=== PATIENT | female | born 1940 | race Caucasian/White ===

== ENCOUNTER 2018-12-09 08:50 | Emergency (ER) | payer MEDICARE, OTHER ==
[2018-12-09] MEDS ORDERED: Sodium Chloride 0.9% 1000 ML 1,000 ML ONE (09:35)
[2018-12-09 09:41] LABS: BASOPHIL % 0.2 % (0.0-0.4); Basophil (Absolute #) 0.02 (0-0.4); Eosinophil % 1.7 % (0.00-5.0); Eosinophil (Absolute #) 0.16 (0-0.5); Granulocyte Absolute (ANC) 7.27 (1.4-6.9); Granulocytes % 76.3 % (36.0-66.0); Hematocrit 30.5 % (35-47); Hemoglobin 9.3 gm/dl (12.0-16.0); Lymphocyte (Absolute #) 1.55 (1.0-4.6); Lymphocytes % 16.3 % (24.0-44.0); Mean Cell Volume 100.7 fl (78-100); Mean Corpuscular Hgb Concent. 30.5 g/dl (32-36); Mean Platelet Volume 11.2 fl (6-9.5); Monocyte (Absolute #) 0.52 (0.0-1.3); Monocytes % 5.5 % (0.0-12.0); Platelet Count 191 K/mm3 (150-450); Red Blood Count 3.03 M/mm3 (4.1-5.4); Red Cell Distribution Width 14.5 % (11.5-14.0); White Blood Count 9.5 K/mm3 (4.0-10.5)
[2018-12-09 09:44] LABS: Mean Corpuscular Hemoglobin 30.6 pg (26-32)
[2018-12-09] MEDS: Sodium Chloride 0.9% 1000 ML 1,000 ML IV STA (09:54)
[2018-12-09 09:55] LABS: ALBUMIN 3.1 g/dL (3.5-5.0); ALKALINE PHOSPHATASE 148 U/L (38-126); ANION GAP 16.5 MEQ/L (5-15); BLOOD UREA NITROGEN 23 mg/dL (7-17); CHLORIDE 106 mmol/L (98-107); Calcium 9.2 mg/dL (8.4-10.2); Carbon Dioxide 23 mmol/L (22-30); Creatinine 1 0.96 mg/dL (0.52-1.04); Glucose 193 mg/dL (74-106); SGOT/AST 33 U/L (14-36); SGPT/ALT 14 U/L (0-35); SODIUM 141 mmol/L (137-145); Total Protein 6.3 g/dL (6.3-8.2)
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
[2018-12-09 12:59] LABS: Appearance CLOUDY (CLEAR); Bilirubin NEGATIVE (NEGATIVE); Blood NEGATIVE Ery/ul (0-5); Epithelial Cells RARE /HPF (FEW); Glucose NEGATIVE (NEGATIVE); Ketones NEGATIVE (NEGATIVE); Leukocyte Esterase LARGE (NEGATIVE); Mucus SLIGHT /HPF (NEGATIVE); Nitrite NEGATIVE (NEGATIVE); Non-Squamous Epithelial Cells FEW /HPF (FEW); Protein,Urine Dip 100 (Negative); Specific Gravity 1.016 (1.005-1.025); Urobilinogen NEGATIVE mg/dL (0-1); WBC 51-100 /HPF (0-5)
[2018-12-09] MEDS ORDERED: ROCEPHIN 1 Gm-D5w 50 ml Bag** 1 G/50 ML IVPB IV ONE (13:13)
[2018-12-09] MEDS: ROCEPHIN 1 Gm-D5w 50 ml Bag** 1 G/50 ML IVPB IV STA (13:45)
[2018-12-09 14:36] VITALS: BP 150/70; PULSE 94; O2SAT 95
== END 2018-12-09 14:45 ==
LOC: ED 08:50
DX: R42 Dizziness and giddiness (principal); N39.0 Urinary tract infection, site not specified
CPT/HCPCS: 36000; 36415; 70450; 71250; 80053; 81001; 84484; 85025; 87077; 87086; 87186; 93005; 93041; 96360; 96365; 99284; J0696

== ENCOUNTER 2019-12-31 05:40 | Emergency (ER) | payer MEDICARE, OTHER ==
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
[2019-12-31 07:05] LABS: BASOPHIL % 0.2 % (0.0-0.4); Basophil (Absolute #) 0.03 (0-0.4); Eosinophil % 3.6 % (0.00-5.0); Eosinophil (Absolute #) 0.53 (0-0.5); Hematocrit 35.9 % (35-47); Hemoglobin 12.2 gm/dl (12.0-16.0); Lymphocyte (Absolute #) 3.92 (1.0-4.6); Lymphocytes % 26.8 % (24.0-44.0); Mean Cell Volume 101.1 fl (78-100); Mean Corpuscular Hemoglobin 34.4 pg (26-32); Monocyte (Absolute #) 0.92 (0.0-1.3); Monocytes % 6.3 % (0.0-12.0); Neutrophil % 63.1 % (36.0-66.0); Platelet Count 230 K/mm3 (150-450); Red Blood Count 3.55 M/mm3 (4.1-5.4); Red Cell Distribution Width 13.1 % (11.5-14.0); White Blood Count 14.6 K/mm3 (4.0-10.5)
[2019-12-31 07:09] LABS: INR 0.96 (0.8-3.0); PROTIME 10.8 SECONDS (9.95-12.35)
[2019-12-31 07:23] LABS: ALBUMIN 4.4 g/dL (3.5-5.0); ANION GAP 16.2 MEQ/L (5-15); BILIRUBIN,TOTAL 0.5 mg/dL (0.2-1.3); Calcium 10.6 mg/dL (8.4-10.2); Creatinine 1 1.28 mg/dL (0.52-1.04); Potassium 3.8 mmol/L (3.5-5.1); Total Protein 7.6 g/dL (6.3-8.2)
[2019-12-31 07:36] LABS: Appearance CLEAR (CLEAR); Bilirubin NEGATIVE (NEGATIVE); Blood NEGATIVE Ery/ul (0-5); Glucose NEGATIVE (NEGATIVE); Ketones NEGATIVE (NEGATIVE); Leukocyte Esterase NEGATIVE (NEGATIVE); Mucus SLIGHT /HPF (NEGATIVE); Nitrite NEGATIVE (NEGATIVE); Protein,Urine Dip 100 (Negative); RBC 0-2 /HPF (0-2); Specific Gravity 1.012 (1.005-1.025); Urobilinogen NEGATIVE mg/dL (0-1)
[2019-12-31 07:44] VITALS: BP 178/72; PULSE 55; O2SAT 100
--- NOTE | 2019-12-31 08:43 | XRAY ---
Exam: CT of the head without IV contrast from 12/31/2019. Total DLP: 1020.26 mGy-cm. Comparison: CT of the head without IV contrast from 12/09/2018. Indication: 79-year-old female with injury/trauma, fall, consciousness not specified, injury date 12/31/2019. Technique: Non-IV contrast axial images were obtained through the brain. Reconstructed coronal and sagittal images were created and reviewed. Findings: The study is remarkable for a prominent acute subdural hematoma measuring a maximum of 1.5 cm in width on axial image #34. The mid and lower left cerebral cortical sulci are effaced. The left lateral ventricle is compressed, and there is significant [id number]-[id number] shift of approximately 12 mm on axial image #33. I see no evidence of descending herniation at this time. Structures of the posterior fossa appear unremarkable. In addition to the large left-sided acute subdural hematoma, there are some scattered foci of acute subarachnoid hemorrhage within the upper cerebral convexities bilaterally. The remainder of the right cerebral hemisphere appears unremarkable. I see no evidence of acute fracture of the calvarium of the skull. Some small polyps or mucosal thickening are seen along the floor of the left maxillary sinus. No paranasal sinus air-fluid levels are seen. The mastoid air cells are well aerated without effusion. There is superficial anterior left periorbital and posterior left parietal soft tissue scalp injury/contusion. Impression: 1. There is at least a moderate sized acute subdural hematoma on the left measuring up to 15 mm in thickness, with associated mass effect and significant midline shift from left to right, as discussed above. Some additional foci of acute subarachnoid hemorrhages are seen within the upper cerebral convexities bilaterally. Note: These findings were discussed with Dr. Matos at 7:29 AM on 12/31/[address] [facility] radiologist, Kenya Cabrera M.D.
--- NOTE | 2019-12-31 09:07 | XRAY ---
Exam: CT of the cervical spine without IV contrast from 12/31/2019. CTDI: 42.73 mGy Comparison: None. Indication: 79-year-old female with injury/trauma, fall, injury date on 12/31/2019. Technique: Non-IV contrast axial CT images were obtained through the cervical spine. Reconstructed coronal and sagittal images were created and reviewed. Findings: I see no acute fracture, AP subluxation, or prevertebral soft tissue swelling. Cervical vertebral body heights are normal and in good alignment. Cervical interspace heights are fairly well-maintained. At C4-C5, there is a mild diffuse posterior disc/osteophyte complex which mildly indents the anterior aspect of the spinal sac resulting in a mild canal stenosis on the sagittal images. Similarly, there is a smaller posterior disc/osteophyte complex at C3-C4 which results in a mild canal stenosis as well. These findings are chronic. Incidentally, there is an oval-shaped 6.6 mm x 5 mm dense calcification at the posterior margin of the spinal canal at the C3-C4 level to the left of midline. I am unsure what this represents. Significance is doubtful. I also note some degenerative change at the preodontoid space and the posterior aspect of C2-C3 and C5-C6. Small anterior vertebral endplate spurs are seen noted as well. The neural foramen appear mildly narrowed at C3-C4 on the left, mildly narrowed bilaterally at C4-C5, and moderately narrowed on the left at C5-C6. Small dystrophic calcification is seen posterolaterally on the right at the C2-C3 level. This is within the posterior soft tissues. This appears long-standing. The lung apices are clear. There is a partially imaged left brachiocephalic stent. Impression: 1. No acute cervical spine fracture or AP traumatic subluxation is seen. 2. Mild diffuse degenerative changes are seen throughout the cervical spine. Other incidental findings, as discussed above.
--- NOTE | 2019-12-31 09:45 | XRAY ---
Exam: CT of the thoracic spine without IV contrast which were reconstructed from the CT of the chest without IV contrast performed on the same date. Comparison: Two-view chest from 02/09/2019. Indication: 79-year-old female with injury/trauma; patient fell injuring left side. Findings: Reconstructed axial CT images were obtained through the thoracic spine. In addition, reconstructed coronal and sagittal images were generated and reviewed. Findings: There is a mild lower mid dorsal kyphosis representing no change. I see no acute thoracic spine fracture or AP subluxation. The thoracic spinal canal does not appear compromised (i.e. no stenosis). Prominent anterior lateral osteophytes are seen within the mid and lower thoracic spine representing no change. The neural foramen appear unremarkable. A 4 cm in length vascular stent is seen within the proximal left subclavian artery. Emphysematous changes are again seen within the lungs. A calcified atherosclerotic thoracic aorta is seen. The ascending aorta measures a maximum of 3.6 cm in AP dimension on sagittal image #20 and 3.6 cm in width on coronal image #13. The thyroid gland appears grossly unremarkable. Some coronary artery vascular calcification is seen bilaterally. I again see a mildly comminuted fracture deformity of the manubrium of the sternum. Age is unclear. Correlate clinically. Impression: 1. No acute thoracic spine fracture is seen.
--- NOTE | 2019-12-31 09:55 | XRAY ---
Exam: CT of the facial bones without IV contrast from 12/31/2019. CTDI: 30.20 mGy Comparison: None. Indication: 79-year-old female with injury/trauma, patient fell, left orbital/periorbital injury on 12/31/2019. Technique: Non-IV contrast axial images were obtained through the facial bones. Reconstructed coronal and sagittal images were created and reviewed. Findings: I see no evidence of facial bone fracture or traumatic air-fluid levels within the paranasal sinuses. No acute intraorbital abnormality is seen. The globes of each eye appear unremarkable. There is moderate soft tissue swelling noted. There is moderate anterior left periorbital soft tissue swelling. There is also moderate soft tissue swelling/contusion overlying the anterior left cheek. I again see some mucosal thickening and mild polypoid nodularity at the floor of the left maxillary sinus. The remainder of the paranasal sinuses appears clear. The zygomatic arches appear intact. The parotid glands appear unremarkable. There is incidental note of a calcified osteoma within the posterior right ethmoid sinus. I again see a large left-sided acute subdural hematoma which is seen to better advantage on the CT of the brain obtained on the same day. Impression: 1. Moderate left periorbital and left facial soft tissue injury/contusion. No underlying acute intraorbital abnormality is seen. 2. No acute facial bone fracture or traumatic air-fluid levels within the paranasal sinuses is seen.
--- NOTE | 2019-12-31 10:24 | XRAY ---
Exam: CT of the chest without IV contrast from 12/31/2019. CTDI: 4.83 mGy Comparison: Two-view chest films series from 02/09/[address] of the chest without IV contrast from 12/09/2018. Indication: 79-year-old female with injury/trauma striking left side, fall, injury date of 12/31/2019. Technique: Non-IV contrast axial images were obtained through the chest. Reconstructed coronal and sagittal images were created and reviewed. Findings: The heart size appears within normal limits without evidence of pericardial effusion. Coronary artery vascular calcification is seen bilaterally. There is also moderate atherosclerotic vascular calcification of the thoracic aorta. The ascending aorta is mildly prominent measuring up to 3.6 cm in diameter. This does not appear changed from 12/09/2018. Some central bronchial wall calcification is again seen. There is no evidence of mediastinal hematoma or abnormal lymphadenopathy. I again see a vascular stent within the proximal left subclavian artery. Mild centrilobular emphysematous changes are seen within the upper lobes. There is a stable bilobed lung nodule measuring 9 mm in greatest diameter within the posterior lateral right lower lobe on axial image #36 representing no change from 12/09/2018. No other soft tissue lung nodularity is seen. No air space infiltrates, pneumothorax, or pleural fluid is seen. Prior moderate left pleural effusion on 12/09/2018 has resolved. Minimal compression atelectatic changes are seen within both posterior lung sulci. There is a complex 4.4 cm in diameter predominantly cystic soft tissue structure abutting the anterior lateral aspect of the upper pole of the left kidney. This measures approximately +6.0 Hounsfield units. This might represent a cyst, but this is not definitive. There has been further healing of the mildly comminuted fracture of the manubrium of the sternum as compared to 12/09/2018 (i.e. old). I see no other evidence of acute fracture within the chest. The left rib cage appears unremarkable. Soft tissue bruising/contusion is seen overlying the medial aspect of the left breast. Impression: 1. I see no evidence of acute traumatic abnormality within the chest. There does appear to be soft tissue injury/bruising within the medial aspect of the left breast. No underlying left rib fracture, pneumothorax, or pleural effusion is seen. 2. A complex appearing cystic structure is seen abutting the upper pole of the the left kidney. Etiology is not certain. Consider further evaluation with renal ultrasound or dedicated CT scan. 3. Other incidental findings, as discussed above.
--- NOTE | 2019-12-31 10:33 | XRAY ---
Exam: CT of the pelvis without IV contrast from 12/31/2019. CTDI: 12.44 mGy Comparison: None. Indication: 79-year-old female with injury/trauma, fall, injury to left side of pelvis, injury date on 12/31/2019. Technique: Non-IV contrast axial images were obtained through the pelvis with a bone algorithm technique. Reconstructed coronal and sagittal images were created and reviewed. Findings: There is an essentially nondisplaced linear fracture within the left iliac bone. Only minimally asymmetric soft tissue swelling/hematoma is seen anterior to this. There is no free intraperitoneal fluid within the pelvis. No additional acute fractures of the pelvis are seen. An aorto biiliac stent is seen. There is also a femoral-femoral bypass graft traversing the lower pelvis anteriorly. Moderate osteoarthritic changes are seen within both hip joints. There is also degenerative change at the level of the symphysis pubis. The sacroiliac joints appear intact and reveal some vacuum phenomena. Extensive subcutaneous soft tissue contusion and hematoma are seen within the lower left flank and lateral left buttock region. Fecal impaction within the rectum is seen with the rectum measuring about 7 cm in diameter. Mild sigmoid colon diverticulosis is seen. A mildly atrophied anteflexed uterus is seen containing a punctate calcification within it. No free intraperitoneal air is seen. Impression: 1. Essentially nondisplaced linear left iliac bone fracture. 2. Lateral left gluteal and lower left flank soft tissue hematoma. 3. Other incidental findings, as discussed above.
--- NOTE | 2019-12-31 11:00 | XRAY ---
Exam: CT of the lumbar spine without IV contrast from 12/31/2019. CTDI: 24.85 mGy Comparison: None. Indication: 79-year-old female with injury/trauma, fall, blunt trauma to left side, injury date 12/31/2019. Technique: Non-IV contrast axial images were obtained through the lumbar spine. Reconstructed coronal and sagittal images were created and reviewed. Findings: There are 5 [id number] lumbar-type vertebra. I see no acute lumbar spine fracture, spondylolisthesis, or spondylolysis. The vertebral body heights are well-maintained. Alignment is unremarkable. Moderate anterior lateral vertebral endplate spurring is seen throughout the lumbar spine. The lumbar interspace heights are well-maintained. Mild facet joint arthropathy is seen at L4-L5 and L5-S1, right greater than left. The neural foramen appear unremarkable. There is mild posterior diffuse bulging of both the L4-L5 and L5-S1 discs. There is a mild to moderate central canal stenosis at L4-L5 on axial image there may be a slight central canal stenosis at L5-S1 as well. #66. No other spinal stenosis is seen. There is a large amount of stool within the rectum suggesting some fecal impaction. An aorto biiliac stent graft is seen. Impression: 1. No acute lumbar spine fracture, spondylolisthesis, or spondylolysis is seen. 2. Mild degenerative changes are seen throughout the lumbar spine. See above. 3. Posterior disc bulging is seen at both L4-L5 and L5-S1. I believe there is at least a mild to moderate central canal spinal stenosis at L4-L5 on axial image #66. There is also questionable slight central canal stenosis at L5-S1 on axial image #76.
== END 2019-12-31 07:56 | disposition short-term general hospital (02) ==
LOC: ED 05:40
DX: I60.9 Nontraumatic subarachnoid hemorrhage, unspecified (principal); I62.00 Nontraumatic subdural hemorrhage, unspecified; S06.6X9A Traumatic subarachnoid hemorrhage with loss of consciousness of unspecified duration, initial encounter; M25.552 Pain in left hip; I10 Essential (primary) hypertension; E11.9 Type 2 diabetes mellitus without complications; Z79.899 Other long term (current) drug therapy; M54.6 Pain in thoracic spine; S00.212A Abrasion of left eyelid and periocular area, initial encounter; E05.90 Thyrotoxicosis, unspecified without thyrotoxic crisis or storm; K21.9 Gastro-esophageal reflux disease without esophagitis
CPT/HCPCS: 36000; 36415; 70450; 70486; 71250; 72125; 72131; 72192; 76376; 80053; 81001; 84484; 85025; 85610; 93005; 99285; 99291

== ENCOUNTER 2021-06-15 23:33 | Emergency (ER) | payer MEDICARE, OTHER ==
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
[2021-06-16 00:54] LABS: Absolute Neutrophil Ct (ANC) 8.59 (1.4-6.9); BASOPHIL % 0.3 % (0.0-0.4); Basophil (Absolute #) 0.03 (0-0.4); Eosinophil % 3.9 % (0.00-5.0); Eosinophil (Absolute #) 0.45 (0-0.5); Hematocrit 36.9 % (35-47); Hemoglobin 11.2 gm/dl (12.0-16.0); Lymphocyte (Absolute #) 1.52 (1.0-4.6); Lymphocytes % 13.1 % (24.0-44.0); Mean Cell Volume 103.4 fl (78-100); Mean Corpuscular Hemoglobin 31.4 pg (26-32); Mean Corpuscular Hgb Concent. 30.4 g/dl (32-36); Mean Platelet Volume 11.3 fl (7.5-11.0); Monocyte (Absolute #) 0.97 (0.0-1.3); Monocytes % 8.4 % (0.0-12.0); Neutrophil % 74.3 % (36.0-66.0); Platelet Count 222 K/mm3 (150-450); Red Blood Count 3.57 M/mm3 (4.1-5.4); Red Cell Distribution Width 13.3 % (11.5-14.0); White Blood Count 11.6 K/mm3 (4.0-10.5)
[2021-06-16 01:13] LABS: INR 0.95 (0.8-3.0); PROTIME 11.2 SECONDS (9.4-12.5)
[2021-06-16 01:16] LABS: PTT 36.1 SECONDS (25.1-36.5)
[2021-06-16 01:17] LABS: ALBUMIN 4.2 g/dL (3.5-5.0); ANION GAP 15.4 MEQ/L (5-15); BILIRUBIN,TOTAL 0.6 mg/dL (0.2-1.3); Calcium 9.6 mg/dL (8.4-10.2); Creatinine 1 1.38 mg/dL (0.52-1.04); EST GLOMERULAR FILTRATION RATE 39.2 ML/MIN; Potassium 4.4 mmol/L (3.5-5.1)
--- NOTE | 2021-06-16 08:06 | XRAY ---
Indication: Headache. Syncope. Multiple contiguous axial images obtained through the head without contrast. Comparison: December 31, 2019. There has been interval left temporoparietal craniotomy. Again age-appropriate global atrophy and minimal periventricular degenerative micro-ischemia. No acute intracranial hemorrhage, abnormal extra-axial fluid collection, or mass effect. Fourth ventricle is midline without hydrocephalus. Remaining bony calvarium intact. Visualized paranasal sinuses and mastoid air cells are clear. Impression: Nonacute senile brain. Comment: Preliminary interpretation made by C. No critical discrepancy.
--- NOTE | 2021-06-16 08:08 | XRAY ---
Indication: Nausea. Reaction. Comparison: October 11, 2020. Portable chest remains hyperinflated with stable CT proven benign right lower lobe nodule. No focal infiltrate, consolidation, or large effusion. Heart not enlarged with stable left subclavian artery stent graft. Bony thorax intact again with osteopenia and degenerative changes. Impression: Continued nonacute chest with chronic features.
== END 2021-06-16 04:29 | disposition home or self-care (01) ==
LOC: ED 23:33
DX: R11.0 Nausea (principal); Z79.899 Other long term (current) drug therapy; Z79.84 Long term (current) use of oral hypoglycemic drugs; E11.9 Type 2 diabetes mellitus without complications; I10 Essential (primary) hypertension
CPT/HCPCS: 36415; 70450; 71045; 80053; 84484; 85025; 85610; 85730; 93005; 99284

== ENCOUNTER 2022-04-29 10:31 | Day surgery (SDC) | payer MEDICARE, OTHER ==
--- NOTE | 2022-04-29 09:07 | HP ---
DATE OF SURGERY: 04/29/2022 HISTORY OF PRESENT ILLNESS: The patient is a 81-year-old nonhealing lesion or nodule left upper buttock for a few months. She desires excision for definitive path and pathologic evaluation. PAST MEDICAL HISTORY: Hypertension, diabetes. PAST SURGICAL HISTORY: Exploration for foreign body in the past. Stent in the past. MEDICATIONS: Toprol, aspirin, Yvonne, vitamin C, calcium with vitamin D, Zocor, lisinopril, Neurontin. ALLERGIES: ERYTHROMYCIN BASE. SENSITIVE TO OVIDONE-IODINE (BETADINE). SOAP (BETADINE). ADHESIVE TAPE. FAMILY HISTORY: Heart disease, cancer, diabetes, hypertension. SOCIAL HISTORY: One and a half to two pack per day smoker, denies alcohol abuse. REVIEW OF SYSTEMS: Fourteen systems reviewed. No chest pain or palpitations. Other systems negative or noncontributory as above and per preadmission questionnaire. PHYSICAL EXAMINATION: GENERAL: No acute distress. HEENT: Sclerae nonicteric. NECK: No JVD. CHEST: Equal excursion, nonlabored breathing. CVS: Regular rate and rhythm. ABDOMEN: Soft. EXTREMITIES: No significant edema. In her buttock area, the buttock has a nonhealing lesion of indeterminate behavior. NEURO: Alert, oriented, moving extremities symmetrically. PSYCH: Appropriate mood and affect. IMPRESSION: Nonhealing lesion of indeterminate behavior left buttock in need of excision possible packing. General risk of anesthesia, deep venous thrombosis, pulmonary embolism, or pneumonia, risk of aches and pains, risk of failure to heal, possible risk of malignancy that may need other procedures. She understands and agrees to the planned procedure. Will proceed as an outpatient excisional biopsy left buttock lesion or nodule of indeterminate behavior.
[~2022-04-29 10:31] MED LIST: Lactated Ringers 1,000 ML IV ONE; Sensorcaine 0.25% 10 ML ONE
[2022-04-29] MEDS ORDERED: Lactated Ringers 1,000 ML IV SCH (11:00)
[2022-04-29] MEDS ORDERED: CEFAZOLIN 2 GM-D5W BAG** 2 GM/50 ML ML IV SCH (11:00)
[2022-04-29 11:53] LABS: ANION GAP 9.7 MEQ/L (5-15); Calcium 8.8 mg/dL (8.4-10.2); Creatinine 1 1.36 mg/dL (0.52-1.04); EST GLOMERULAR FILTRATION RATE 39.9 ML/MIN
[2022-04-29] MEDS ORDERED: Decadron 4 MG INJ ONE (13:17)
[2022-04-29] MEDS ORDERED: Zemuron 100 MG/10 ML ONE (13:17)
[2022-04-29] MEDS ORDERED: BRIDION 200MG/2ML IV ONE (13:17)
[2022-04-29] MEDS ORDERED: DIPRIVAN 200 MG/20 ML IV ONE (13:17)
[2022-04-29] MEDS ORDERED: Amidate 20 MG/10 ML IV ONE (13:17)
[2022-04-29] MEDS ORDERED: Xylocaine-Mpf 2% 5 Ml Vial ONE (13:17)
[2022-04-29] MEDS ORDERED: SUBLIMAZE 100 MCG/2 ML ONE (13:17)
[2022-04-29] MEDS ORDERED: Zofran 4 MG/2 ML VIAL ONE (13:17)
[2022-04-29] MEDS ORDERED: ROBINUL ONE (14:00)
--- NOTE | 2022-04-29 15:18 | OP ---
SURGERY DATE/TIME: 04/29/2022 1320 PREOPERATIVE DIAGNOSIS: Nonhealing buttock lesion of indeterminate behavior left buttock. POSTOPERATIVE DIAGNOSIS: Nonhealing buttock lesion of indeterminate behavior left buttock. PROCEDURE: Excisional biopsy of nonhealing buttock lesion of indeterminate behavior (approximately 3 cm with margins). SURGEON: Dr. Brian Ambriz. ANESTHESIA: General. ESTIMATED BLOOD LOSS: Minimal. INDICATIONS: As noted above. Risks and benefits explained in detail and not limited to and consent obtained. DESCRIPTION OF PROCEDURE AND FINDINGS: The patient is taken to the operating room. General anesthesia induced. Placed in prone position. Appropriate padding and positioning per anesthesia and OR staff. Buttock prepped in the usual sterile fashion. After official time out and no disagreement with planned procedure, marking out to normal appearing skin on either side spindle-shaped excision pattern. The specimen itself was about 3 cm. Excision pattern 4.5 to 5 cm. Dissection carried to normal appearing subcutaneous tissue below going out to clear margins as possible. The specimen is passed off for pathology. She had a little bit of ooze from aspirin effect. With pinpoint cautery appeared to have adequate hemostasis. Subcu closed with interrupted 3-0 Vicryl. Skin closed with 4-0 Vicryl. Given the location near her buttock crevice, a couple layers of Dermabond and sterile dressing applied. The patient tolerated the procedure well. There were no immediate complications. Findings discussed with the family out in the waiting area including the importance of minimizing aggressive activity, being easy up and down to break it open. They were instructed to use normal saline wet-to-dry dressing changes on a daily basis.
[2022-04-29 15:51] VITALS: BP 182/61; PULSE 70; O2SAT 92
== END 2022-04-29 15:45 | disposition home or self-care (01) ==
LOC: SDC 10:31
PROVIDERS: ATTEND Surgery
DX: D23.5 Other benign neoplasm of skin of trunk (principal); I10 Essential (primary) hypertension
CPT/HCPCS: 36415; 80048; 93005; 99100; J0690; J1100; J2405; J2704; J3010